=== PATIENT | female | born 1990 | race Caucasian/White ===

== ENCOUNTER → 2017-02-27 | Outpatient (CLI) | payer BC ==
[~2017-02-27] MED LIST: AMOX500 PO; AZIT250 PO; FLUO20 PO; HYDACE5 PO; ISODICACE PO
== END | disposition home or self-care (01) ==
LOC: LAB SHORT 13:24 → PLD 13:24
DX: D22.62 Melanocytic nevi of left upper limb, including shoulder (principal); L91.8 Other hypertrophic disorders of the skin
CPT/HCPCS: 88304; 88305

== ENCOUNTER 2018-11-15 19:33 | Emergency (ER) | payer OTHER ==
[~2018-11-15] VITALS: Ht 160 cm; Wt 92.5 kg
[2018-11-15] MEDS ORDERED: CEPH500 PO (20:48)
== END 2018-11-15 20:58 | disposition home or self-care (01) ==
LOC: ER 19:33
DX: T54.91XA Toxic effect of unspecified corrosive substance, accidental (unintentional), initial encounter (principal); T20.45XA Corrosion of unspecified degree of scalp [any part], initial encounter; T32.0 Corrosions involving less than 10% of body surface; F32.9 Major depressive disorder, single episode, unspecified; Z79.899 Other long term (current) drug therapy; Z79.891 Long term (current) use of opiate analgesic
CPT/HCPCS: 99282

== ENCOUNTER → 2023-01-27 | Outpatient (CLI) | payer BC ==
[~2023-01-27] MED LIST changes: +CEPH500 PO
== END | disposition home or self-care (01) ==
LOC: LAB 08:28 → LAB SHORT 08:28
DX: R30.0 Dysuria (principal); R35.0 Frequency of micturition; R31.9 Hematuria, unspecified
CPT/HCPCS: 87077; 87086; 87186